=== PATIENT | female | born 1990 | race African-American/Black ===

== ENCOUNTER 2016-10-08 15:54 | Emergency (ER) | payer MEDICAID ==
[~2016-10-08] VITALS: Ht 167.6 cm; Wt 73.0 kg
[~2016-10-08 15:54] MED LIST: ACET-2178
[2016-10-08] MEDS ORDERED: SODIUM CHLORIDE 0.9% 1,000 ML IV ONE (17:05)
[2016-10-08 17:53] LABS: BASOPHILS % 0.4 % (0.0-2.0); EOSINOPHILS % 0.1 % (0.0-5.0); HEMATOCRIT. 30.6 % (36.0-48.0); HEMOGLOBIN. 9.8 g/dL (12.0-16.0); LYMPHOCYTES % 7.7 % (20.0-50.0); MEAN CORPUSCULAR HEMOGLOBIN 23.3 pg (28.0-32.0); MEAN PLATELET VOLUME 8.7 fl (7.4-10.4); MONOCYTES % 9.3 % (2.0-8.0); NEUTROPHILS % 82.5 % (40.0-76.0); PLATELET 186 x1000/uL (130-400); RED CELL DISTRIBUTION WIDTH 24.3 % (11.6-14.6)
[2016-10-08 17:57] LABS: CHLORIDE 106 mEq/L (98-107); INR 1.1; PROTHROMBIN TIME 11.9 sec
[2016-10-08 17:59] LABS: CARBON DIOXIDE 24 mEq/L (21-32)
[2016-10-08 18:01] LABS: HCG SCREEN NEGATIVE
[2016-10-08 18:03] LABS: PLATELET ESTIMATE NORMAL
[2016-10-08 18:22] LABS: CLARITY URINE CLOUDY (CLEAR); COLOR URINE YELLOW (YELLOW); GLUCOSE URINE NEGATIVE (NEGATIVE); KETONES URINE TRACE (NEGATIVE); LEUKOCYTE ESTERASE URINE 2+ (NEGATIVE); NITRITE URINE NEGATIVE (NEGATIVE); OCCULT BLOOD URINE NEGATIVE (NEGATIVE); PH URINE 8.5 (4.5-8.0); PROTEIN URINE 1+ (NEGATIVE); SPECIFIC GRAVITY URINE 1.018 (1.005-1.030)
[2016-10-08] MEDS ORDERED: ACETAMINOPHEN 325MG TABLET PO ONE (18:45)
[2016-10-08] MEDS ORDERED: CEPHALEXIN 500MG CAPSULE PO ONE (18:45)
[2016-10-08 21:06] VITALS: BP 120/78
== END 2016-10-08 21:09 | disposition home or self-care (01) ==
LOC: ER 17:18
DX: N39.0 Urinary tract infection, site not specified (principal); R30.0 Dysuria; Z88.0 Allergy status to penicillin; Z98.890 Other specified postprocedural states; Z88.6 Allergy status to analgesic agent
CPT/HCPCS: 36415; 80048; 81001; 83690; 84703; 85025; 85610; 86850; 86900; 86901; 96360; 96361; 99285; J7030

== ENCOUNTER 2017-02-15 10:32 | Emergency (ER) | payer MEDICAID ==
[~2017-02-15] VITALS: Ht 167.6 cm; Wt 73.0 kg
[2017-02-15] MEDS ORDERED: ACETAMINOPHEN WITH CODEINE 300/30MG TABLET PO STA (11:01)
[2017-02-15 11:23] VITALS: BP 113/50
[2017-02-15 11:49] LABS: BASOPHILS % 0.5 % (0.0-2.0); HEMATOCRIT. 23.7 % (36.0-48.0); HEMOGLOBIN. 7.4 g/dL (12.0-16.0); MEAN CORPUSCULAR HEMOGLOBIN 22.3 pg (28.0-32.0); MEAN CORPUSCULAR VOLUME 71.3 fL (81.0-99.0); MEAN PLATELET VOLUME 7.5 fl (7.4-10.4); MONOCYTES % 5.5 % (2.0-8.0); PLATELET 328 x1000/uL (130-400); RED BLOOD CELL COUNT 3.32 mill/uL (4.2-5.4); RED CELL DISTRIBUTION WIDTH 15.3 % (11.6-14.6)
== END 2017-02-15 12:40 | disposition home or self-care (01) ==
LOC: ER 10:48
DX: R51 Headache (principal); D64.9 Anemia, unspecified; Z88.0 Allergy status to penicillin; Z88.6 Allergy status to analgesic agent; Z98.890 Other specified postprocedural states
CPT/HCPCS: 36415; 81025; 85025; 86850; 86870; 86900; 99283

== ENCOUNTER 2017-08-08 12:18 | Emergency (ER) | payer OTHER, MEDICAID ==
[~2017-08-08] VITALS: Ht 167.6 cm; Wt 77.0 kg
[2017-08-08 12:54] VITALS: BP 113/67
[2017-08-08 15:24] LABS: BASOPHILS % 1.6 % (0.0-2.0); EOSINOPHILS % 0.1 % (0.0-5.0); HEMATOCRIT. 26.1 % (36.0-48.0); HEMOGLOBIN. 7.8 g/dL (12.0-16.0); LYMPHOCYTES % 9.7 % (20.0-50.0); MEAN CORPUSCULAR HEMOGLOBIN 19.4 pg (28.0-32.0); MEAN CORPUSCULAR VOLUME 65.1 fL (81.0-99.0); MEAN PLATELET VOLUME 7.7 fl (7.4-10.4); NEUTROPHILS % 86.6 % (40.0-76.0); PLATELET 401 x1000/uL (130-400); RED BLOOD CELL COUNT 4.01 mill/uL (4.2-5.4); RED CELL DISTRIBUTION WIDTH 18.1 % (11.6-14.6)
[2017-08-08 15:29] LABS: CHLORIDE 111 mEq/L (98-107)
[2017-08-08 15:30] LABS: INR 1.1; PROTHROMBIN TIME 11.2 sec (9.4-11.6)
[2017-08-08 17:08] LABS: PLATELET ESTIMATE NORMAL
== END 2017-08-08 21:43 | disposition left against medical advice (07) ==
LOC: ER 12:18
DX: R51 Headache (principal); D64.9 Anemia, unspecified
CPT/HCPCS: 36415; 80053; 85025; 85610; 99284